=== PATIENT | male | born 1995 | race Asian ===

== ENCOUNTER 2018-05-04 03:18 | Emergency (ER) | payer BC ==
[~2018-05-04] VITALS: Ht 167.6 cm; Wt 68.5 kg
[2018-05-04 04:05] LABS: BASOPHIL % 2.2 % (0-2); PLATELET COUNT 496 x10^3mcL (130-400); RED CELL DISTRIBUTION WIDTH 24.1 % (11.5-14.5)
[2018-05-04 04:15] LABS: CALCIUM 9.2 mg/dL (8.5-10.1); CARBON DIOXIDE 26.8 mmol/L (21-32); CHLORIDE SERUM 104 mmol/L (98-107); CREATININE SERUM 0.9 mg/dL (0.7-1.3); GFR1 > 60 mL/min; GLUCOSE SERUM 90 mg/dL (74-106); POTASSIUM SERUM 3.6 mmol/L (3.5-5.1); SODIUM SERUM 139 mmol/L (136-145)
[2018-05-04 04:19] LABS: ALBUMIN 4.3 g/dL (3.4-5.0); ALKALINE PHOSPHATASE 85 U/L (46-116); ALT/SGPT 21 U/L (16-63); AST/SGOT 24 U/L (15-37); TOTAL PROTEIN, SERUM 7.7 g/dL (6.4-8.2)
[2018-05-04 04:22] LABS: rbc morphology (normal/abnorm) ABNORMAL (NORMAL)
[2018-05-04 04:23] LABS: target cell (codocyte) 2+; tear drop cell (dacryocyte) 2+
[2018-05-04 05:29] VITALS: BP 108/73
== END 2018-05-04 05:29 | disposition home or self-care (01) ==
LOC: ED 03:18
PROVIDERS: Emergency Medicine Emergency Medical Services
DX: T78.1XXA Other adverse food reactions, not elsewhere classified, initial encounter (principal); R42 Dizziness and giddiness; R00.2 Palpitations; R07.89 Other chest pain; R06.02 Shortness of breath; R11.0 Nausea; X58.XXXA Exposure to other specified factors, initial encounter
CPT/HCPCS: J1200; J2060; J2930; J3490; Q0092